=== PATIENT | female | born 1965 | race Caucasian/White ===

== ENCOUNTER 2023-10-13 16:19 | Outpatient (CLI) | payer BC, SELFPAY ==
--- NOTE | ~2023-10-13 | US_ITS ---
EXAMINATION: US thyroid DATE: 10/13/2023 16:34 INDICATION: Hypothyroidism. TECHNIQUE: Multiple ultrasound images of the thyroid were obtained. COMPARISON: None. FINDINGS: The right thyroid lobe measures 4.0 x 1.3 x 1.5 cm. The left thyroid lobe measures 3.6 x 1.2 x 1.4 c m. The isthmus measures 0.4 cm. There is normal echotexture and echogenicity throughout the thyroid g land. No discrete nodules identified. Normal vascular flow is present. IMPRESSION: Normal thyroid ultrasound findings. Reviewed, dictated and finalized at location K.
== END 2023-10-13 16:20 ==
LOC: MICIMG 16:20
PROVIDERS: PCP Student in an Organized Health Care Education/Training Program; Visit Provider Student in an Organized Health Care Education/Training Program
DX: E03.9 Hypothyroidism, unspecified (principal)
CPT/HCPCS: 76536